=== PATIENT | male | born 1965 | race Caucasian/White ===

== ENCOUNTER 2020-04-01 03:16 | Emergency (ER) | payer OTHER ==
[~2020-04-01] VITALS: Ht 182.9 cm; Wt 70.3 kg
[~2020-04-01 03:16] MED LIST: CARISOPRODOL 3350 MG PO; IBUPROFEN 800800 M1 PO; IBUPROFEN 800800 MG PO; MEDROLDOSEPACK PO; NOHOMEMEDICATIONS; NORCO 5-325 TA1 EAC1 PO; NORCO 5-325 TA1 EACH PO; NORFLEX100 MG PO; PERCOCET 5-3251 EACH PO; ROBAXIN500 MG PO; TORADOL 10 MG T10 MG PO
[2020-04-01 04:03] LABS: ABSOLUTE NEUTROPHILS 4.3 thou/uL (1.4-8.2); BASOPHILS 0.2 % (0.0-2.0); EOSINOPHILS 1.8 % (0.0-3.0); HEMATOCRIT 41.3 % (42.0-52.0); HEMOGLOBIN 13.2 gm/dL (14.0-18.0); LYMPHOCYTES 30.8 % (24.0-44.0); MCH 29.2 pg (26.0-34.0); MCV 91.1 fL (80.0-100.0); MONOCYTES 8.6 % (1.0-8.0); PLATELET COUNT 161 thou/uL (150-400); POLYS 58.6 % (36.0-66.0); RBC 4.53 mil/uL (4.50-6.00); RDW 14.9 % (10.5-14.5); WBC 7.3 thou/uL (4.0-11.0)
[2020-04-01 04:15] LABS: CALCIUM 9.9 mg/dL (8.5-10.1); CREATININE 1.4 mg/dL (0.7-1.3); POTASSIUM 3.8 mmol/L (3.5-5.1)
[2020-04-01 04:24] LABS: TROPONIN-I 0.07 ng/mL (<0.06)
--- NOTE | 2020-04-01 07:15 | EKG ---
[address] [place] [address] ELECTROCARDIOGRAM REPORT Name: SAMMY WALTON Room #: REG [facility]#: [id number] Admission: 04/01/20 Attend Phys: Discharge: Date of : 63 Report #: [id number] [facility] ED Test Date: 2020-04-01 Test Time: 03:44:21 Pat Name: SAMMY WALTON Department: Room: Gender: Talent Development Director: CHRIS : 1965 Requested By: Ron Alcazar Order Number: [id number] MD: Zachery Eddy Measurements Intervals [place] Rate: 100 P: 24 OH: 166 QRS: 10 QRSD: 101 T: 81 QT: 386 QTc: 498 Interpretive Statements Sinus tachycardia Left atrial enlargement Left ventricular hypertrophy J Point elevation Borderline prolonged QT interval No previous ECG available for comparison Electronically Signed On 04-01-2020 7:15:43 PARTS COUNTERMAN by Zachery Eddy [email or web address] <ELECTRONICALLY SIGNED> By: Zachery Eddy MD, [facility] 04/01/20 0715 0344 0344 Zachery Eddy MD, FACNilda /EPI
[2020-04-01 07:42] LABS: ALBUMIN 3.4 g/dL (3.4-5.0); DIRECT BILIRUBIN < 0.1 mg/dL (<0.1-0.2); SGOT 17 U/L (15-37); SGPT 31 U/L (30-65); TOTAL BILIRUBIN 0.5 mg/dL (0.2-1.0); TOTAL PROTEIN 6.7 g/dL (6.4-8.2)
[2020-04-01 09:40] VITALS: BP 154/116
--- NOTE | 2020-04-01 12:45 | EKG ---
[address] [place] [address] ELECTROCARDIOGRAM REPORT Name: SAMMY WALTON Room #: DEP [facility]#: [id number] Admission: 04/01/20 Attend Phys: Discharge: 04/01/20 Date of : 63 Report #: [id number] [facility] ED Test Date: 2020-04-01 Test Time: 04:01:33 Pat Name: SAMMY WALTON Department: Room: Gender: M Rib Stiffener And Heel Dipper: mira : 1965 Requested By: Austin Thompson Order Number: [id number] MD: Zachery Eddy Measurements Intervals [place] Rate: 99 P: 16 AL: 156 QRS: 4 QRSD: 99 T: 85 QT: 377 QTc: 484 Interpretive Statements Sinus rhythm Left atrial enlargement Left ventricular hypertrophy Borderline prolonged QT interval Baseline wander in lead(s) V1,V2 Compared to ECG 04/01/2020 03:44:21 Sinus tachycardia no longer present ST (T wave) deviation no longer present Electronically Signed On 04-01-2020 12:45:30 BONE DRIER by Zachery Eddy [email or web address] <ELECTRONICALLY SIGNED> By: Zachery Eddy MD, FACC 04/01/20 1245 040 0401 Zachery Eddy MD, FAC /EPI
== END 2020-04-01 09:41 | disposition left against medical advice (07) ==
LOC: ER 03:16
PROVIDERS: Emergency Medicine
DX: R06.00 Dyspnea, unspecified (principal); R77.8 Other specified abnormalities of plasma proteins; R79.1 Abnormal coagulation profile; F17.210 Nicotine dependence, cigarettes, uncomplicated; Z79.1 Long term (current) use of non-steroidal anti-inflammatories (NSAID); Z79.899 Other long term (current) drug therapy; Z88.5 Allergy status to narcotic agent; Z88.8 Allergy status to other drugs, medicaments and biological substances; Z20.828 Contact with and (suspected) exposure to other viral communicable diseases

== ENCOUNTER 2020-04-02 10:26 | Inpatient (IN) | payer OTHER ==
[~2020-04-02] VITALS: Ht 182.9 cm; Wt 70.3 kg
[2020-04-02 10:37] VITALS: BP 170/125
[2020-04-02 14:56] LABS: HEMATOCRIT 38.2 % (42.0-52.0); HEMOGLOBIN 12.4 gm/dL (14.0-18.0); MCH 29.3 pg (26.0-34.0); MCHC 32.6 g/dL (28.0-37.0); RBC 4.25 mil/uL (4.50-6.00); RDW 14.7 % (10.5-14.5); WBC 10.4 thou/uL (4.0-11.0)
[2020-04-02 15:02] LABS: CREATININE 1.4 mg/dL (0.7-1.3); POTASSIUM 3.3 mmol/L (3.5-5.1)
[2020-04-02 15:10] LABS: TROPONIN-I 0.11 ng/mL (<0.06)
--- NOTE | 2020-04-02 15:31 | EKG ---
[address] [address] [facility] [place] [address] ELECTROCARDIOGRAM REPORT Name: SAMMY WALTON Room #: PRE [facility]#: [id number] Admission: Attend Phys: Discharge: Date of : 63 Report #: [id number] [facility] ED Test Date: 2020-04-02 Test Time: 14:47:30 Pat Name: SAMMY WALTON Department: Room: Gender: M Escort Patients: vinh : 1965 Requested By: Tita Gonzalez Order Number: [id number] MD: Zachery Eddy Measurements Intervals [place] Rate: 98 P: 39 NM: 177 QRS: 8 QRSD: 100 T: 79 QT: 379 QTc: 484 Interpretive Statements Sinus rhythm Biatrial enlargement LVH with secondary repolarization abnormality J Point elevation, probably due to LVH Borderline prolonged QT interval Compared to ECG 04/01/2020 04:01:33 Early repolarization now present ST (T wave) deviation now present Electronically Signed On 04-02-2020 15:31:25 MASTER SCHEDULER by Zachery Eddy [email or web address] <ELECTRONICALLY SIGNED> By: Zachery Eddy MD, [facility] 04/02/20 1531 1447 144 Zachery Eddy MD, [facility] /EPI
[2020-04-02 17:45] LABS: CHOLESTEROL 182 mg/dL (<200); HDL CHOLESTEROL 86 mg/dL (>40); LDL CHOLESTEROL 81 mg/dL (<100); TC:HDL 2.1 Ratio (Not establshd); TRIGLYCERIDE 75 mg/dL (<150); VLDL 15 mg/dL (<40)
[2020-04-02 19:16] VITALS: BP 140/100
[2020-04-02 19:50] VITALS: BP 140/100
[2020-04-02 22:03] VITALS: BP 145/109
[2020-04-03 03:06] LABS: GLYCOHEMOGLOBIN (HGB A1C) 5.4 % (4.8-5.6)
[2020-04-03 03:26] LABS: HEMATOCRIT 37.8 % (42.0-52.0); HEMOGLOBIN 12.2 gm/dL (14.0-18.0); MCH 29.2 pg (26.0-34.0); MCHC 32.4 g/dL (28.0-37.0); MCV 90.2 fL (80.0-100.0); RBC 4.19 mil/uL (4.50-6.00); RDW 14.4 % (10.5-14.5); WBC 7.7 thou/uL (4.0-11.0)
[2020-04-03 03:29] LABS: CALCIUM 9.3 mg/dL (8.5-10.1); CREATININE 1.4 mg/dL (0.7-1.3); POTASSIUM 3.9 mmol/L (3.5-5.1)
[2020-04-03 03:34] VITALS: BP 145/110
[2020-04-03 07:30] VITALS: BP 147/112
--- NOTE | 2020-04-03 07:46 | NUR ---
PT AOX4. PT DENIES PAIN. PT REPORTS SOB WHILE AT REST AND WITH EXERTION. PT ALTERNATING BETWEEN ROOM AIR AND 3L O2 NC, ENCOURAGED CONTINUOUS USE OF O2. PT TOLERATING PO INTAKE OF FLUIDS AND HEART HEALTHY DIET. PT DENIES NAUSEA. PT AMBULATING INDEPENDENTLY IN ROOM TO BATHROOM. PT REPORTS INCREASING SOB. ONCALLNP NOTIFIED, EMAR UPDATED. ONETIME IV LASIX GIVEN. PT CONTINUES RESTING IN BED THROUGHOUT SHIFT, FREQUENT REPOSITIONING ENCOURAGED, PT NOTED TO SHIFT INDEPENDENTLY WHILE IN BED. PT ENCOURAGED TO NOTIFY STAFF FOR ALL NEEDS, CALL LIGHT WITHIN REACH, BED ALARM ON, BED IN LOWEST POSITION, FREQUENT MONITORING WILL CONTINUE. PT WITH SERVICE DOG, PAPERWORK IN FRONT OF CHART.
[2020-04-03 08:35] LABS: TROPONIN-I 0.12 ng/mL (<0.06)
--- NOTE | 2020-04-03 11:02 | 2DMMODE ---
[facility] [address] [place] [address] 2 D/M-MODE ECHOCARDIOGRAM Name: SAMMY WALOTN Room #: 201-P ADM IN ..#: [id number] Admission: 04/02/20 Attend Phys: Minoo Delgado MD Discharge: Date of : 63 Report #: [id number] THIS REPORT FOR: cc: ADRIANA - Francine family physician/PCP ADRIANA - Francine family physician/PCP Zachery Eddy MD [facility] ~ APPROVED REPORT Study performed: 04/03/2020 09:42:15 EXAM: Comprehensive 2D, Doppler, and color-flow Echocardiogram Patient Location: In-Patient Room #: 201 BSA: 1.91 HR: 94 bpm Rhythm: NSR Other Information Study Quality: Good Risk Factors: Cardiac Risk Factors: HTN Indications Dyspnea Echo Enhancing Agent Indication: Rule out thrombus 2D Dimensions IVSd: 12.12 (7-11mm) LVOT Diam: 22.57 (18-24mm) LVDd: 52.17 mm PWd: 12.40 (7-11mm) LVDs: 43.11 (25-40mm) Left Atrium: 35.41 (27-40mm) Aortic Root: 37.63 mm IVC: 16.00 mm LV Single Plane 4CH: 31.43 % Desir's LVEF: 36.00 % Volumes Left Atrial Volume (Systole) Single Plane 4CH: 52.61 mL Single Plane 2CH: 90.15 mL [facility] [place] [address] 2 D/M-MODE ECHOCARDIOGRAM Name: SAMMY WALTON JR Room #: 201-P [facility] IN .R.#: [id number] Admission: 04/02/20 Attend Phys: Minoo Delgado MD Discharge: Date of : 63 Report #: [id number] ESV Index: 46.00 mL/m2 Aortic Valve AoV Peak Junaid.: 1.30 m/s AO Peak Gr.: 6.78 mmHg LVOT Max P.53 mmHg AO Mean Gr.: 3.98 mmHg LVOT Mean P.80 mmHg AO V2 Mean: 0.91 m/s LVOT Max V: 0.62 m/s AO V2 VTI: 23.60 cm LVOT Mean V: 0.40 m/s JERRELL (VTI): 1.79 cm2 LVOT V1 VTI: 10.56 cm JERRELL Vmax: 1.90 cm2 SV (LVOT): 42.23 mL Mitral Valve MV Peak Gr.: 2.11 mmHg MV Mean Gr.: 1.12 mmHg E/A Ratio: 1.1 MV Decel. Time: 118.59 ms MV E Max Junaid.: 0.59 m/s MV A Junaid.: 0.54 m/s MV Max Junaid.: 0.73 m/s MV Mean Junaid.: 0.50 m/s MV VTI: 197.58 mm MVA VTI: 213.71 mm2 MV PHT: 34.39 ms MVA (PHT): 1.96 cm2 TDI E/Lateral E': 8.43 Lateral E' Junaid.: 0.07 m/s Pulmonary Valve PV Peak Junaid.: 1.05 m/s PV Peak Gr.: 4.42 mmHg AZ End Vmax: 1.99 m/s Pulmonary Vein P Vein S: 0.25 m/s P Vein A: 0.27 m/s P Vein D: 0.38 m/s P Vein A Dur.: 129.2 msec P Vein S/D Ratio: 0.66 Tricuspid Valve TR Peak Junaid.: 2.77 m/s TR Peak Gr.: 30.77 mmHg RVSP: 41.00 mmHg Left Ventricle The left ventricle is normal size. There is normal left ventricular wall thickness. Left ventricular systolic function is moderate to severely decreased. LVEF 35%. Transmitral Doppler flow pattern [facility] [address] [place] [address] 2 D/M-MODE ECHOCARDIOGRAM Name: SAMYM WALTON Room #: 201-P [facility] IN ..#: [id number] Admission: 04/02/20 Attend Phys: Minoo Delgado MD Discharge: Date of : 63 Report #: [id number] suggests impaired LV relaxation. Right Ventricle The right ventricle is normal size. The right ventricular systolic function is normal. Atria The left atrium size is normal. The right atrium size is normal. Aortic Valve The aortic valve is normal in structure. Trace to mild aortic regurgitation. There is no aortic valvular stenosis. Mitral Valve The mitral valve is normal in structure. Trace mitral regurgitation. No evidence of mitral valve stenosis. Tricuspid Valve The tricuspid valve is normal in structure. Trace tricuspid regurgitation. Pulmonic Valve The pulmonary valve is normal in structure. Trace to mild pulmonic regurgitation. Great Vessels The aortic root is normal in size. IVC is normal in size and collapses >50% with inspiration. Pericardium There is no pericardial effusion. <Conclusion> Normal left ventricle size with borderline concentric hypertrophy Global hypokinesis ejection fraction 35% Normal right ventricle size/function Normal atrial size Color-flow Doppler study was performed of the aortic/mitral/tricuspid/pulmonary valve Trace of mitral/[place]ric[place] [address] 2 D/M-MODE ECHOCARDIOGRAM Name: SAMMY WALTON Room #: 201-P ADM IN .R.#: [id number] Admission: 04/02/20 Attend Phys: Minoo Delgado MD Discharge: Date of : 63 Report #: [id number] Unable to assess PA systolic pressure No pericardial effusion <ELECTRONICALLY SIGNED> By: Zachery Eddy MD, [facility] 04/03/20 1101 00 00 Zachery Eddy MD, FACC /INF
[2020-04-03 11:34] VITALS: BP 131/89
--- NOTE | 2020-04-03 14:36 | NUR ---
Met with patient who admits with chest pain. patient has service dog at bedside. Patient is homeless. he does not want to dc to a senior care. He reports plan to discharge to his tent near hospital. Denies need for cab. Denies need for community resources.
[2020-04-03 15:47] VITALS: BP 127/94
--- NOTE | 2020-04-03 17:58 | NUR ---
RECEIVED PT'S CARE AROUND 0720; PT. IN THE RESTHROOM; SR ON THE MONITOR; DURING AM ASSESMENT PT. AOX4; NO C/O PAIN; DBP OBOVE 100s; AM MEDICATION GIVEN; EDUCATED ABOUT VOIDING ON URINAL IN ORDER TO MEASURE OUTPUT; ST. UNDERSTANDING; NEEDS TO BE REMAINED; RIPENING ROOM OPERATOR DOG AT THE BED SIDE; THROUGH THE DAY SOB WITH EXERTION; REMAINED TO USE 02; ST. UNDERSTANDING; ASSESSMENT CHARGED; FOLLOWING POC; WILL PASS ON REPORT;
[2020-04-03 20:00] VITALS: BP 129/84
[2020-04-04 04:50] VITALS: BP 135/94
[2020-04-04 07:10] VITALS: BP 127/94
[2020-04-04 11:55] VITALS: BP 136/94
--- NOTE | 2020-04-05 10:30 | NUR ---
CALLED THE PT TO INFORM HIM OF THE BLOOD CULTURE RESULTS. PER THE ER DOCTOR IF HE IS RUNNING A FEVER HE SHOULD RETURN. IT IS UNKNOWN IF THE PT HAD BEEN INFORMED OF THE BLOOD CULTURE RESULSTS ON 04/03/20. THE RESULT LOG SHOWS ERIK GROSS AND DR MATHEW RECEIVED THE RESULTS ON 04/03/20. THE PT LEFT THE CCU AMA.
== END 2020-04-04 14:36 | disposition left against medical advice (07) | DRG 293 ==
LOC: ER 10:26 → EROBS 17:18 → 2N 19:51
PROVIDERS: Emergency Medicine; ADMIT Internal Medicine; ATTEND Internal Medicine
DX: I13.0 Hypertensive heart and chronic kidney disease with heart failure and stage 1 through stage 4 chronic kidney disease, or unspecified chronic kidney disease (principal); G89.29 Other chronic pain; M54.9 Dorsalgia, unspecified; F12.90 Cannabis use, unspecified, uncomplicated; I50.9 Heart failure, unspecified; N18.9 Chronic kidney disease, unspecified; Z53.29 Procedure and treatment not carried out because of patient's decision for other reasons; Z88.6 Allergy status to analgesic agent; Z88.8 Allergy status to other drugs, medicaments and biological substances; Z91.19 Patient's noncompliance with other medical treatment and regimen; Z59.0 Homelessness; Z71.6 Tobacco abuse counseling
CPT/HCPCS: 10081

== ENCOUNTER 2020-04-21 09:41 | Emergency (ER) | payer OTHER ==
[~2020-04-21] VITALS: Ht 182.9 cm; Wt 70.3 kg
[2020-04-21] MEDS ORDERED: LISINOPRIL2.5 MG PO (10:03)
[2020-04-21] MEDS ORDERED: CARDIZEM CD240 M1 PO (10:03)
[2020-04-21] MEDS ORDERED: PROAIR HFA8.5 GM INH (10:03)
[2020-04-21 10:10] VITALS: BP 161/130
--- NOTE | 2020-04-21 11:14 | EKG ---
[address] [address] [employer] [address] ELECTROCARDIOGRAM REPORT Name: KRYSTALMITZY WOODWARDKEEGAN Nicholson Room #: REG [facility]#: [id number] Admission: 04/21/20 Attend Phys: Discharge: Date of : 63 Report #: [id number] [facility] ED Test Date: 2020-04-21 Test Time: 09:47:30 Pat Name: SAMMY WALTON Department: Room: Gender: Denture Waxer: ERICA : 1965 Requested By: Gera Sanchez Order Number: [id number] MD: Zachery Eddy Measurements Intervals [place] Rate: 93 P: 47 HI: 154 QRS: 0 QRSD: 100 T: 82 QT: 375 QTc: 467 Interpretive Statements Sinus rhythm Left atrial enlargement Left ventricular hypertrophy J Point elevation, consider anterior injury Compared to ECG 04/02/2020 14:47:30 Early repolarization no longer present ST (T wave) deviation still present Electronically Signed On 04-21-2020 11:14:41 ORNAMENT MAKER HAND by Zachery Eddy [email or web address] <ELECTRONICALLY SIGNED> By: Zachery Eddy MD, [facility] 04/21/20 1114 0947 6 Zachery Eddy MD, [facility] /EPI
== END 2020-04-21 10:10 | disposition home or self-care (01) ==
LOC: ER 09:41
DX: I10 Essential (primary) hypertension (principal); Z76.0 Encounter for issue of repeat prescription; R06.2 Wheezing; F17.210 Nicotine dependence, cigarettes, uncomplicated; Z88.5 Allergy status to narcotic agent; Z88.6 Allergy status to analgesic agent; Z88.8 Allergy status to other drugs, medicaments and biological substances

== ENCOUNTER 2020-09-24 07:24 | Emergency (ER) | payer OTHER ==
[~2020-09-24] VITALS: Ht 182.9 cm; Wt 70.3 kg
[2020-09-24 07:24] VITALS: BP 160/118
[~2020-09-24 07:24] MED LIST changes: +CARDIZEM CD240 M1 PO; +LISINOPRIL2.5 MG PO; +PROAIR HFA8.5 GM INH
[2020-09-24 07:56] LABS: ABSOLUTE NEUTROPHILS 3.8 thou/uL (1.4-8.2); BASOPHILS 0.2 % (0.0-2.0); EOSINOPHILS 4.7 % (0.0-3.0); HEMATOCRIT 42.7 % (42.0-52.0); HEMOGLOBIN 14.2 gm/dL (14.0-18.0); LYMPHOCYTES 22.9 % (24.0-44.0); MCH 30.4 pg (26.0-34.0); MCHC 33.3 g/dL (28.0-37.0); MCV 91.1 fL (80.0-100.0); MONOCYTES 6.9 % (1.0-8.0); PLATELET COUNT 152 thou/uL (150-400); POLYS 65.3 % (36.0-66.0); RBC 4.69 mil/uL (4.50-6.00); RDW 14.7 % (10.5-14.5); WBC 5.8 thou/uL (4.0-11.0)
[2020-09-24 08:12] LABS: CALCIUM 8.9 mg/dL (8.5-10.1); CREATININE 1.3 mg/dL (0.7-1.3); POTASSIUM 3.8 mmol/L (3.5-5.1)
[2020-09-24 08:16] LABS: ALBUMIN 3.6 g/dL (3.4-5.0); TOTAL BILIRUBIN 0.5 mg/dL (0.2-1.0); TOTAL PROTEIN 7.8 g/dL (6.4-8.2); TROPONIN-I 0.59 ng/mL (<0.06)
[2020-09-24 10:58] LABS: URINE BILIRUBIN NEGATIVE (Negative); URINE BLOOD NEGATIVE (Negative); URINE CLARITY CLEAR; URINE COLOR YELLOW; URINE GLUCOSE-RANDOM* NEGATIVE (Negative); URINE KETONES NEGATIVE (Negative); URINE LEUKOCYTES-REFLEX NEGATIVE (Negative); URINE NITRITE-REFLEX NEGATIVE (Negative); URINE PROTEIN (DIPSTICK) TRACE (Negative); URINE SPECIFIC GRAVITY 1.015 (1.005-1.035); URINE UROBILINOGEN 0.2 E.U./dl (0.2-1.0)
--- NOTE | 2020-09-24 11:41 | NUR ---
DR LÓPEZ AT BEDSIDE
--- NOTE | 2020-09-24 12:05 | EKG ---
[address] [address] ELECTROCARDIOGRAM REPORT Name: SAMMY WALTON Room #: 170-17 ADM IN M.R.#: [id number] Admission: 09/24/20 Attend Phys: Doc Galeano MD Discharge: Date of : 63 Report #: [id number] [facility] ED Test Date: 2020-09-24 Test Time: 07:37:20 Pat Name: SAMMY WALTON Department: Room: 170 Gender: M Spoke Maker: DEBI : 1965 Requested By: Yan Rosen Order Number: [id number] MD: Zachery Eddy Measurements Intervals [place] Rate: 93 P: 34 AK: 191 QRS: -9 QRSD: 101 T: 76 QT: 385 QTc: 479 Interpretive Statements Sinus rhythm Atrial premature complex Probable left atrial enlargement Left ventricular hypertrophy J Point elevation V1-3 Borderline prolonged QT interval Compared to ECG 04/21/2020 09:47:30 Atrial premature complex(es) now present ST (T wave) deviation still present Electronically Signed On 09-24-2020 12:05:39 CDT by Zachery Eddy [email or web address] <ELECTRONICALLY SIGNED> By: Zachery Eddy MD, [facility] 09/24/20 1205 0737 0737 Zachery Eddy MD, [facility] /EPI
[2020-09-24 14:17] VITALS: BP 120/92
[2020-09-24 16:23] VITALS: BP 120/92
--- NOTE | 2020-09-24 17:06 | NUR ---
THIS RN ENTERS ROOM TO TELL PATIENT THAT HE HAS A ROOM UPSTAIRS THAT THEY ARE CLEANING. PATIENT STATES HE CANNOT STAY IN THE HOSPITAL ANY LONGER, WILL NOT STATE WHY. BEGINS RIPPING OFF MONITORING EQUIPMENT. IV REMOVED, AMA FORM SIGNED. DR BROOKS CONTACTED TO NOTIFY OF LEAVING. PATIENT VERBALIZES RISKS OF LEAVING AMA
[2020-09-24 17:12] VITALS: BP 147/107
--- NOTE | 2020-09-25 08:22 | 2DMMODE ---
[facility] [place] [address] 2 D/M-MODE ECHOCARDIOGRAM Name: SAMMY WALTON [id number] Admission: 09/24/20 Attend Phys: Discharge: 09/24/20 Date of : 63 Report #: [id number] THIS REPORT FOR: cc: ADRIANA - Francine family physician/PCP ADRIANA - No family physician/PCP Zachery Eddy MD [facility] ~ APPROVED REPORT Study performed: 09/24/2020 15:09:19 EXAM: Comprehensive 2D, Doppler, and color-flow Echocardiogram Patient Location: ER Room #: 17 Status: stat BSA: 1.91 HR: 100 bpm BP: 120/92 mmHg Rhythm: Tachycardia Other Information Study Quality: Technically Limited Technically limited study due to Patient extremelt short of air, had to scan patient sitting up. Indications Congestive Heart Failure Dyspnea Cardiomyopathy 2D Dimensions IVSd: 11.46 (7-11mm) LVOT Diam: 20.77 (18-24mm) LVDd: 60.83 mm PWd: 9.71 (7-11mm) Ascending Ao: 33.71 (22-36mm) LVDs: 56.27 (25-40mm) Left Atrium: 32.61 (27-40mm) Aortic Root: 37.61 mm Left Ventricle Left ventricle is dilated. There is severe global hypokinesis of the left ventricle. There is normal left ventricular wall thickness. Left ventricular ejection fraction is severely decreased. LVEF is 20%. The left ventricular diastolic function is abnormal. Right Ventricle [facility] [address] [place] [address] 2 D/M-MODE ECHOCARDIOGRAM Name: SAMMY WALTON Lyn [id number] Admission: 09/24/20 Attend Phys: Discharge: 09/24/20 Date of : 63 Report #: [id number] Right ventricle is dilated. Right ventricle is hypokinetic. Atria Left atrium is dilated. Right atrium is dilated. Aortic Valve The aortic valve is normal in structure. No aortic regurgitation is present. There is no aortic valvular stenosis. Mitral Valve The mitral valve is normal in structure. Trace mitral regurgitation. No evidence of mitral valve stenosis. Tricuspid Valve The tricuspid valve is normal in structure. There is no tricuspid valve regurgitation noted. Pulmonic Valve The pulmonary valve is normal in structure. There is no pulmonic valvular regurgitation. Great Vessels The aortic root is normal in size. The inferior vena cava is not well visualized. Pericardium There is no pericardial effusion. <Conclusion> Moderately dilated left ventricle with normal wall thickness Severe global hypokinesis ejection fraction 20% Grade 1 diastolic dysfunction Right ventricle moderately dilated/hypokinetic Moderately dilated biatrial enlargement Color-flow Doppler study was performed of the aortic/mitral/tricuspid/pulmonary valve Normal aortic/mitral valve structure and function No tricuspid valve insufficiency No pericardial effusion Normal aortic root size <ELECTRONICALLY SIGNED> By: Zachery Eddy MD, FACC 09/25/20706 6 6 Zachery Eddy MD, FACC /INF
== END 2020-09-24 17:02 | disposition left against medical advice (07) ==
LOC: ER 07:24 → EROBS 09:06
PROVIDERS: Emergency Medicine
DX: I21.4 Non-ST elevation (NSTEMI) myocardial infarction (principal); Z20.822 Contact with and (suspected) exposure to COVID-19; F17.210 Nicotine dependence, cigarettes, uncomplicated; I11.0 Hypertensive heart disease with heart failure; I50.9 Heart failure, unspecified; Z88.5 Allergy status to narcotic agent; Z88.6 Allergy status to analgesic agent